=== PATIENT | female | born 1960 | race Caucasian/White ===

== ENCOUNTER 2021-11-26 15:10 | Emergency (ER) | payer OTHER ==
[~2021-11-26] VITALS: Ht 165.1 cm; Wt 64.9 kg
[2021-11-26] MEDS ORDERED: paxlovid PO (15:30)
--- NOTE | 2021-11-26 15:42 | NUR ---
Gave pt RX and d/c instructions, pt verbalized understanding.
== END 2021-11-26 15:49 | disposition home or self-care (01) ==
LOC: ER 15:10
DX: U07.1 COVID-19 (principal); E78.5 Hyperlipidemia, unspecified; Z28.311 Partially vaccinated for COVID-19
CPT/HCPCS: A4663

== ENCOUNTER 2022-03-10 12:06 | Emergency (ER) | payer OTHER ==
[~2022-03-10] VITALS: Ht 165.1 cm; Wt 65.8 kg
[~2022-03-10 12:06] MED LIST: paxlovid PO
--- NOTE | 2022-03-10 12:54 | NUR ---
PT IS IN BED 2A. DR HILLIARD EVALUATED THE PT.
--- NOTE | 2022-03-10 14:51 | NUR ---
PT WAS D/C'd TO HOME. D/C INSTRUCTIONS GIVEN TO THE PT BY DR HILLIARD.
[2022-03-10 14:57] VITALS: BP 141/77
== END 2022-03-10 14:58 | disposition home or self-care (01) ==
LOC: ER 12:07
DX: M79.674 Pain in right toe(s) (principal); E78.00 Pure hypercholesterolemia, unspecified; S90.111A Contusion of right great toe without damage to nail, initial encounter; W22.8XXA Striking against or struck by other objects, initial encounter; Y92.89 Other specified places as the place of occurrence of the external cause
CPT/HCPCS: 73630; A4663

== ENCOUNTER 2023-06-04 12:49 | Emergency (ER) | payer OTHER ==
[~2023-06-04] VITALS: Ht 167.6 cm; Wt 64.9 kg
[2023-06-04 13:22] LABS: *BILIRUBIN,URIN NEGATIVE (NEGATIVE); *CLARITY,URINE CLEAR (CLEAR); *COLOR,URINE YELLOW (YELLOW); *KETONES,URINE NEGATIVE (NEGATIVE); *PROTEIN,URINE NEGATIVE (NEGATIVE); *UROBILINOGEN,URINE 0.2 E.U./dl (NORMAL); LEUKOCYTE ESTERASE ,URINE NEGATIVE (NEGATIVE); NITRITE, URINE NEGATIVE (NEGATIVE); PH,URINE 5.5 (5.0-8.0); UGLUCOSE NEGATIVE (NEGATIVE)
[2023-06-04 13:31] LABS: BASOPHILS # (AUTO) 0.1 K/UL (0.0-0.2); BASOPHILS % (AUTO) 1.1 % (0.0-2.0); EOSINOPHILS # (AUTO) 0.1 K/uL (0.0-0.7); EOSINOPHILS % (AUTO) 1.1 % (0.0-7.0); HEMATOCRIT 38.9 % (31.2-41.9); HEMOGLOBIN 13.3 g/dL (10.9-14.3); LYMPHOCYTES # (AUTO) 1.6 K/uL (0.8-4.8); LYMPHOCYTES % (AUTO) 29.7 % (20.5-51.5); MEAN CORPUSCULAR HEMOGLOBIN 29.5 uug (24.7-32.8); MEAN CORPUSCULAR HGB CONC 34 g/dL (32.3-35.6); MEAN CORPUSCULAR VOLUME 86.5 fL (75.5-95.3); MONOCYTES # (AUTO) 0.6 K/uL (0.1-1.30); MONOCYTES % (AUTO) 10.9 % (0.0-11.0); NEUTROPHILS % (AUTO) 57.2 % (38.5-71.5); PLATELET COUNT (AUTO) 266 K/uL (179-408); RED BLOOD CELL COUNT(AUTO) 4.49 MIL/uL (3.63-4.92); RED CELL DISTRIBUTION WIDTH 14.1 % (12.3-17.7); WHITE BLOOD COUNT (AUTO) 5.3 K/uL (3.8-11.8)
[2023-06-04] MEDS: IV NORMAL SALINE 1000 ML BAG IV ONE (13:43)
[2023-06-04 13:53] LABS: *BLOOD, URINE TRACE (NEGATIVE)
[2023-06-04 13:58] LABS: DIFFERENTIAL COMMENT 1
[2023-06-04 14:18] LABS: RBC,URINE 0-3 /HPF (0-3); WBC,URINE 0-3 /HPF (0-3)
[2023-06-04 14:39] LABS: CALCIUM 9.7 mg/dL (8.5-10.1); CREATININE 0.7 mg/dL (0.6-1.3); POTASSIUM 4.3 mmol/L (3.5-5.1)
[2023-06-04 14:45] LABS: ALBUMIN 3.8 g/dL (3.4-5.0); BILIRUBIN,DIRECT 0.1 mg/dL (0.0-0.2); BILIRUBIN,TOTAL 0.4 mg/dL (0.2-1.0); TOTAL PROTEIN, SERUM 8.1 g/dL (6.4-8.2)
[2023-06-04] MEDS ORDERED: CYCL5TAB PO (15:23)
[2023-06-04] MEDS ORDERED: LIDO30AD10 TP (15:23)
[2023-06-04] MEDS ORDERED: POLY17PO4 PO (15:23)
[2023-06-04] MEDS ORDERED: HYDR-3974 PO (15:23)
[2023-06-04] MEDS ORDERED: IBUP-1955 PO (15:23)
[2023-06-04 15:43] VITALS: BP 120/78; O2SAT 99
== END 2023-06-04 16:06 | disposition home or self-care (01) ==
LOC: ER 12:49
DX: S32.010A Wedge compression fracture of first lumbar vertebra, initial encounter for closed fracture (principal); M54.42 Lumbago with sciatica, left side; M54.41 Lumbago with sciatica, right side; K59.00 Constipation, unspecified; E78.5 Hyperlipidemia, unspecified; Z79.899 Other long term (current) drug therapy
CPT/HCPCS: 99284; 74176; 96360; 80076; 80048; 81001; 83690; 85025; 36415; J7040; A4606; A4663